=== PATIENT | female | born 1940 | race Caucasian/White ===

== ENCOUNTER 2017-07-12 19:38 | Emergency (ER) | payer OTHER ==
[~2017-07-12] VITALS: Ht 170.2 cm; Wt 99.8 kg
[~2017-07-12 19:38] MED LIST: AMITRIPTYLINE H50 M2 PO; AMITRIPTYLINE H75 M1 PO; AMITRIPTYLINE PO; CIPROFLOXACIN500 M1 PO; CLARITIN10 MG PO; COLACE100 MG; HYDROCHLOROTHIA25 M1 PO; HYDROCODON-ACE1 EAC8 PO; HYDROCODONE-AP1 EAC6 PO; HYOSCYAMIN125 MCG/5; IBUPROFEN 800800 M1 PO; LETROZOLE2.5 MG PO; LEVSIN-SL0.125 MG SL; MECLIZINE 25 MG25 M1 PO; OMEPRAZOLE 20 M20 M1; PERCOCET 5-3251 EACH PO; POTASSIUM PO; PRILOSEC20 MG PO; PRILOSEC40 MG PO; PYRIDIUM200 M1; STOOL SOFTENER1 EAC2 PO; TAMSULOSIN HCL0.4 MG PO; XANAX 0.5 MG0.5 MG PO
[2017-07-12] MEDS ORDERED: OXYBUTYNIN 5 MG5 M2 PO (19:53)
[2017-07-12] MEDS ORDERED: TRAZODONE HCL50 MG PO (19:53)
[2017-07-12 20:08] LABS: ABSOLUTE EOSINOPHILS 0.2 thou/uL (0.0-0.7); ABSOLUTE LYMPHOCYTES 1.1 thou/uL (0.8-5.3); ABSOLUTE MONOCYTES 0.9 thou/uL (0.0-1.2); ABSOLUTE NEUTROPHILS 5.9 thou/uL (1.6-8.1); BASOPHILS 0.6 %; EOSINOPHILS 2.5 %; HEMATOCRIT 39.6 % (37.0-47.0); HEMOGLOBIN 13.3 gm/dL (12.0-15.0); MCH 32.4 pg (26.0-34.0); MCHC 33.6 g/dL (28.0-37.0); MCV 96.5 fL (80.0-100.0); MONOCYTES 10.6 %; NUCLEATED RBCS 0 /100WBC; PLATELET COUNT* 319 thou/uL (150-400); POLYS 73.3 %; RBC 4.11 mil/uL (4.20-5.00); WBC 8.1 thou/uL (4.0-11.0)
[2017-07-12 20:19] LABS: URINE BILIRUBIN NEGATIVE (Negative); URINE BLOOD 1+ (Negative); URINE CLARITY SL CLOUDY; URINE GLUCOSE-RANDOM NEGATIVE (Negative); URINE KETONES NEGATIVE (Negative); URINE PROTEIN NEGATIVE (Negative); URINE SPECIFIC GRAVITY 1.015 (1.005-1.030); URINE UROBILINOGEN 0.2 E.U./dl (0.2-1.0)
[2017-07-12 20:20] LABS: URINE COLOR PALE YELLOW; URINE LEUKOCYTES-REFLEX 2+ (Negative); URINE NITRITE-REFLEX POSITIVE (Negative)
[2017-07-12 20:20] LABS: ANION GAP 8 mmol/L (7-16); BUN 13 mg/dL (7-18); CALCIUM 9.3 mg/dL (8.5-10.1); CHLORIDE 104 mmol/L (98-107); CO2 26 mmol/L (21-32); GLUCOSE 122 mg/dL (70-99); POTASSIUM 3.7 mmol/L (3.5-5.1); SODIUM 138 mmol/L (136-145)
[2017-07-12 20:29] LABS: BACTERIA-REFLEX >30 Many /HPF (None Seen); CASTS None Seen /LPF (None Seen); CRYSTALS None Seen /LPF (None Seen); SQUAMOUS 4-10 Moderate /LPF (0-3); URINE WBC-REFLEX >25 Many /HPF (0-5)
[2017-07-12 20:30] LABS: URINE RBC 0-2 Rare /HPF (0-2); WBC CLUMPS Moderate (None Seen)
[2017-07-12 20:32] LABS: ALBUMIN 3.6 g/dL (3.4-5.0); ALKALINE PHOSPHATASE 90 U/L (46-116); NT-PRO BRAIN NAT PEPTIDE 342 pg/mL (<300); SGOT 21 U/L (15-37); SGPT 27 U/L (30-65); TOTAL BILIRUBIN 0.3 mg/dL (<0.1-1.0); TOTAL PROTEIN 7.5 g/dL (6.4-8.2); TROPONIN-I LEVEL <0.06 ng/mL (<0.06)
[2017-07-12] MEDS ORDERED: HYDROCHLOROTH12.5 M1 PO (21:13)
[2017-07-12] MEDS ORDERED: KEFLEX500 M1 PO (21:13)
[2017-07-12] MEDS ORDERED: ANTIVERT25 MG PO (21:13)
[2017-07-12 21:49] VITALS: BP 166/76
--- NOTE | 2017-07-13 14:37 | EKG ---
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 : 1940 Requested By: Corwin Browne Order Number: [id number] MD: Keny Krause Measurements Intervals [place] Rate: 70 P: 39 [place]: 169 QRS: 54 QRSD: 108 T: 33 QT: 396 QTc: 428 Interpretive Statements Sinus rhythm Probable left atrial enlargement Baseline wander in lead(s) II,III,aVF Compared to ECG 02/23/2015 22:03:22 No significant changes Electronically Signed On 07-13-2017 14:36:45 CDT by Keny Krause [email or web address] <ELECTRONICALLY SIGNED> By: Shankar Krause MD, [facility] 07/13/17 1826 52 52 Shankar Krause MD, [facility] /EPI
== END 2017-07-12 21:54 | disposition home or self-care (01) ==
LOC: M.ERS 19:38
PROVIDERS: Emergency Medicine Emergency Medical Services
DX: N39.0 Urinary tract infection, site not specified (principal); I10 Essential (primary) hypertension; R42 Dizziness and giddiness; Z88.1 Allergy status to other antibiotic agents

== ENCOUNTER → 2018-02-14 | Outpatient (CLI) | payer OTHER ==
[~2018-02-14] MED LIST changes: +ANTIVERT25 MG PO; +HYDROCHLOROTH12.5 M1 PO; +KEFLEX500 M1 PO; +OXYBUTYNIN 5 MG5 M2 PO; +TRAZODONE HCL50 MG PO
== END ==
LOC: M.RAD 09:19
DX: R92.8 Other abnormal and inconclusive findings on diagnostic imaging of breast (principal)

== ENCOUNTER 2018-08-03 23:10 | Inpatient (IN) | payer OTHER ==
[~2018-08-03] VITALS: Ht 167.6 cm; Wt 93.4 kg
--- NOTE | ~2018-08-03 | OP ---
[address] [address] OPERATIVE REPORT Name: LIAM ENGLISH Room: [address] IN M.R.#: [id number] Admission: 08/04/18 Attend Phys: Etienne Martínez Discharge: Date of : 38 Report #: [id number] THIS REPORT FOR: //name// CC: Hailey Ly DATE OF SERVICE: 08/06/2018 PREOPERATIVE DIAGNOSES: 1. Right ureteral stone. 2. Right renal stone. 3. Urinary tract infection. POSTOPERATIVE DIAGNOSES: 1. Right ureteral stone. 2. Right renal stone. 3. Urinary tract infection. PROCEDURE PERFORMED: Cystoscopy with right retrograde pyelogram, ureteroscopy, laser lithotripsy and stent placement. SURGEON: Harpreet Crook MD ANESTHESIA: General. ESTIMATED BLOOD LOSS: Minimal. COMPLICATIONS: None. INDICATION FOR PROCEDURE: A 77-year-old female who presented with UTI and possible sepsis earlier in the week. She has been on IV antibiotics and a CT scan was obtained revealing a right distal ureteral stone with moderate hydronephrosis and a right renal stone. Her options for management were discussed in detail. She has elected to proceed with cystoscopy, right retrograde pyelogram, ureteroscopy, laser lithotripsy and stent placement. The risks, benefits, possible complications were explained in detail to both she and her and they had a chance to ask questions, which were answered to their satisfaction and they elected to proceed. DESCRIPTION OF PROCEDURE: After obtaining informed consent, the patient was taken to the Operating Room and placed in supine position. After adequate general anesthesia and IV antibiotics, she was prepped and draped in the dorsal lithotomy position. A 21-Tajik cystoscope with 30-degree lens was introduced in the bladder. The bladder was systematically inspected. There was moderate erythema throughout several cystic lesions along the posterior bladder wall consistent with recent urinary tract infection. [place] [address] OPERATIVE REPORT Name: LIAM ENGLISH Room: [address] IN [facility].#: [id number] Admission: 08/04/18 Attend Phys: Etienne Martínez Discharge: Date of : 38 Report #: [id number] was then performed using a 5-Tajik open-ended ureteral catheter. There was normal caliber ureter up to approximately 4 cm proximal to the ureterovesical junction where a small filling defect was noted measuring about 4-5 mm. A small amount of contrast passed proximal revealing a bibdkyar-nj-bmeozf hydroureter and hydronephrosis. A sensor guidewire was then passed through the distal ureter up to the stone. It did not pass very easily, so the Pollack catheter was advanced over the wire up to the stone. The wire was then advanced around the stone into the renal pelvis under fluoroscopic guidance. The Pollack catheter was attempted to be advanced over the wire, pass the stone, but it would not advance easily, so a second Glidewire with an angle tip was attempted to be passed around the stone. There was concern that the wire may have gone submucosal for a small portion, so the second wire was attempted to be placed. It would not pass around the stone, so it was determined that rigid ureteroscopy would be carried out. The rigid ureteroscope was passed alongside the wire into the distal ureter where the stone was encountered and indeed there appeared to be that the first wire passed submucosal for 1-2 mm and then reentered the lumen proximally. The stone appeared to be embedded within the wall, so it was determined that it would need to be extracted in order to place a stent adequately. Using a 200 micron holmium laser fiber, the stone was fragmented in multiple tiny fragments. The stone fragments were basket retrieved atraumatically. The wire was repositioned directly within the lumen of the ureter. The ureteroscope was used to inspect the remainder of the ureter from the proximal ureter down to the ureterovesical junction. There was no evidence of any ureteral injury and no evidence of any residual stone fragments. There was moderate amount of edema where the stone had been lodged. A 6 x 28 cm double-J stent was passed in retrograde fashion over the wire. A good coil was noted overlying the renal pelvis under fluoroscopy and a good coil was directly visualized in the bladder. The bladder was drained. Uro-Jet was applied per urethra. The stone fragments were sent to lab for stone analysis. B and O suppository was placed per rectum and the patient was extubated and taken to recovery room in good condition. PLAN: Return her care to floor, dismiss when stable and afebrile. We will plan to follow up in 1-2 weeks with repeat ureteroscopy, laser lithotripsy for renal stone and to evaluate her ureter to make sure it is healed. By: 1616 [id number] Crook MD /michelle
[2018-08-03 23:25] VITALS: BP 181/80
[2018-08-03 23:29] LABS: URINE BILIRUBIN NEGATIVE (Negative); URINE BLOOD 2+ (Negative); URINE CLARITY CLEAR; URINE COLOR YELLOW; URINE GLUCOSE-RANDOM NEGATIVE (Negative); URINE KETONES NEGATIVE (Negative); URINE NITRITE-REFLEX NEGATIVE (Negative); URINE PROTEIN NEGATIVE (Negative); URINE SPECIFIC GRAVITY 1.015 (1.005-1.030); URINE UROBILINOGEN 0.2 E.U./dl (0.2-1.0)
[2018-08-03] MEDS ORDERED: LEXAPRO 10 MG T10 M1 (23:30)
[2018-08-03] MEDS ORDERED: FEMARA2.5 MG PO (23:31)
[2018-08-03 23:35] LABS: URINE LEUKOCYTES-REFLEX 3+ (Negative)
[2018-08-03 23:48] LABS: BACTERIA-REFLEX >30 Many /HPF (None Seen); CASTS None Seen /LPF (None Seen); CRYSTALS None Seen /LPF (None Seen); MUCUS 0-3 Light strn/LPF (None Seen); SQUAMOUS 0-3 Few /LPF (0-3); URINE WBC-REFLEX >25 Many /HPF (0-5); WBC CLUMPS Few (None Seen)
[2018-08-04 00:20] LABS: HEMATOCRIT 40.4 % (37.0-47.0); HEMOGLOBIN 13.7 gm/dL (12.0-15.0); MCH 32.2 pg (26.0-34.0); MCHC 33.8 g/dL (28.0-37.0); MCV 95.4 fL (80.0-100.0); MPV 8.2 fl. (7.2-11.1); NUCLEATED RBCS 0 /100WBC; PLATELET COUNT* 288 thou/uL (150-400); RBC 4.23 mil/uL (4.20-5.00); RDW-CV 13.1 % (10.5-14.5); WBC 10.7 thou/uL (4.0-11.0)
[2018-08-04 00:45] LABS: CALCIUM 9.6 mg/dL (8.5-10.1); CREATININE 1.1 mg/dL (0.6-1.3); POTASSIUM 3.6 mmol/L (3.5-5.1)
[2018-08-04 01:06] LABS: INFLUENZA A ANTIGEN None Detected (None Detect); INFLUENZA B ANTIGEN None Detected (None Detect)
[2018-08-04 01:12] LABS: ABSOLUTE LYMPHOCYTES 0.7 thou/uL (0.8-5.3); ABSOLUTE MONOCYTES 1.1 thou/uL (0.0-1.2); ABSOLUTE NEUTROPHILS 8.9 thou/uL (1.6-8.1); PLATELET ESTIMATE ADEQUATE; TOXIC GRANULATION 1+
[2018-08-04 02:05] VITALS: BP 173/84
[2018-08-04 03:00] VITALS: BP 173/72
[2018-08-04 04:00] VITALS: BP 135/56
[2018-08-04 04:11] LABS: HEMOGLOBIN 12.5 gm/dL (12.0-15.0); MCH 32.1 pg (26.0-34.0); MCHC 33.7 g/dL (28.0-37.0); MCV 95.3 fL (80.0-100.0); MPV 7.8 fl. (7.2-11.1); RBC 3.89 mil/uL (4.20-5.00); RDW-CV 12.9 % (10.5-14.5); WBC 11.9 thou/uL (4.0-11.0)
[2018-08-04 04:44] LABS: ALBUMIN 2.8 g/dL (3.4-5.0); CALCIUM 8.9 mg/dL (8.5-10.1); POTASSIUM 3.5 mmol/L (3.5-5.1); TOTAL BILIRUBIN 0.6 mg/dL (<0.1-1.0); TOTAL PROTEIN 6.4 g/dL (6.4-8.2)
--- NOTE | 2018-08-04 05:17 | NUR ---
RECEIVED REPORT FROM ED RN. PT A&OX4. VSS. ADMISSION HISTORY & PHYSICAL ASSESSMENT COMPLETED AND CHARTED. FALL FORM SIGNED. ORIENTED TO ROOM AND CALL LIGHT. PT ON RA. PT ON MEDSURG STATUS. PT UPSTANDBY TO RESTROOM. PT COMPLAINED OF HEADACHE- PAIN MEDS GIVEN PER MAR. CALL LIGHT WITHIN REACH.
[2018-08-04 08:09] VITALS: BP 184/76
--- NOTE | 2018-08-04 09:44 | NUR ---
ASSUMED CARE OF PT THIS AM AROUND 07- MS STATUS IN PLACE AND MAINTAINED INDICATED- UPON ASSESSMENT PT NOTED TO BE RESTING IN BED- PT A&O X4- CONTINENT OF BOWEL AND BLADDER- SBA WITH TRANSFERS- LCTA/DIMINISHED IN BASES; RESP EVEN AND UN-LABORED- TEMP NOTED AT 101.7 THIS AM, PRN TYLENOL GIVEN AT 0837; O2 SAT 95% ON RA- ABD SOFT/ROUND/NON-TENDER, BS X4 QUADS- LAST BM REPORTED 08/03/18- FAIR PO INTAKE NOTED WITH BREAKFAST THIS AM- IV NOTED TO LEFT AC INTACT, IVF INFUSSING PRESCRIBED- IV ABT GIVEN THIS AM PRESCIBED, NO ADVERSE REACTIONS TO NOTE-PT DENIES ANY C/O PAIN- CALL LIGHT AND PERSONAL BELONGINGS WITH IN REACH- PT MAKES NEEDS KNOW- ALL NEEDS MET AT THIS TIME- WCTM
--- NOTE | 2018-08-04 10:34 | NUR ---
Pt is A&O. Resides at home with her . Independent, continues to cook and clean. Pt can drive, but states that does the majority of the driving. Pt has a walker and cane at home that she can use for mobility. No home o2. No hx of HH or SNF. Goal is home at id. Following.
--- NOTE | 2018-08-04 11:39 | NUR ---
PT ARRIVED FROM TELE AROUND 1100. PT STABLE. PERSONAL BELONGINGS IN ROOM. IV PATENT. IN ROOM. UP WITH STAND BY. AGREE WITH PREVIOUS ASSESSMENT.
--- NOTE | 2018-08-04 13:29 | NUR ---
PT ORDERS RECEIVED AND ACKNOWLEDGED. PT INDICATES THEY ARE UP AD JONATHAN IN ROOM TO BATHROOM W/O DIFFICULTY. NSG CONFIRMS. PT DECLINES THERAPY SERVICES AT THIS TIME AND INDICATES NO CONCERNS W/ DISCHARGE BACK TO HOME. WILL DISCHARGE PT ORDERS PER PT REQUEST.
[2018-08-04 15:30] VITALS: BP 155/74
--- NOTE | 2018-08-04 17:03 | NUR ---
PT A&Ox4. BP AND TEMP SLIGHTLY ELEVATED, RELIEVED PARTIALLY BY MEDICATION. IV PATENT, SL. BATHROOM PRIVLEDGES GIVEN. BLOOD CULTURE CAME BACK POSSITIVE WITH GRAM NEGATIVE RODS, FRANCESCA NOTIFIED. CALL LIGHT WITHIN REACH WILL CONTINUE TO MONITOR.
[2018-08-04 20:00] VITALS: BP 118/58
[2018-08-05 04:07] LABS: HEMATOCRIT 36.6 % (37.0-47.0); HEMOGLOBIN 12.3 gm/dL (12.0-15.0); MCH 32.2 pg (26.0-34.0); MCHC 33.7 g/dL (28.0-37.0); MCV 95.8 fL (80.0-100.0); MPV 8.3 fl. (7.2-11.1); RBC 3.82 mil/uL (4.20-5.00); RDW-CV 13.1 % (10.5-14.5); WBC 10.3 thou/uL (4.0-11.0)
[2018-08-05 04:12] LABS: CALCIUM 9.3 mg/dL (8.5-10.1); CREATININE 1.2 mg/dL (0.6-1.3); MAGNESIUM 1.8 mg/dL (1.8-2.4); POTASSIUM 4.7 mmol/L (3.5-5.1)
[2018-08-05 08:00] VITALS: BP 142/68
--- NOTE | 2018-08-05 08:13 | NUR ---
Alert and oriented x 4. She is up independently to the bathroom. She had tylenol for back pain at 2100. At midnight she did have mylanta and tramadol for heartburn. Vitals have been stable. She had no emesis this shift. She's been afebrile. She did sleep well.
[2018-08-05 15:44] VITALS: BP 142/57
--- NOTE | 2018-08-05 17:48 | NUR ---
PT A&Ox4. VITALS STABLE. UP AD JONATHAN. ON RA. IV L AC PATENT. 4MM STONE FOUND, STRAINING URINE. SURGERY SCHEDULED FOR TOMORROW. DENIED PAIN. DENIED NAUSEA. IN ROOM. CALL LIGHT WITHIN REACH. WILL CONTINUE TO MONITOR.
[2018-08-05 20:00] VITALS: BP 148/72
[2018-08-06 04:10] LABS: HEMATOCRIT 36.4 % (37.0-47.0); HEMOGLOBIN 12.1 gm/dL (12.0-15.0); MCHC 33.3 g/dL (28.0-37.0); RBC 3.79 mil/uL (4.20-5.00); WBC 7.6 thou/uL (4.0-11.0)
[2018-08-06 04:39] LABS: CALCIUM 9.4 mg/dL (8.5-10.1); CREATININE 1.1 mg/dL (0.6-1.3); POTASSIUM 3.9 mmol/L (3.5-5.1)
--- NOTE | 2018-08-06 05:19 | NUR ---
ASSUMEDPATIENT CARE AT 1900. PATIENT ALERT AND ORIENTED TIMES FOUR. NO COMPLAINTS OF PAIN OR DISCOMFORT NOTED. PATIENT NERVOUS ABOUT SURGICAL PROCEDURE. WENT OVER WHAT THAT WITH HER AND SHE SEEMED TO RELAX A LITTLE. DISSAPPOINTED THAT "THINGS KEEP COMING UP" THAT ARE WRONG WITH HER AND THAT SHE HAS TO KEEP STAYING. HOPEFUL TO GO OME AFTER PROCEDURE TODAY. DIE CAST SUPERVISOR AND HOURLY ROUNDING COMPLETED DOCUMENTED.
[2018-08-06 08:00] VITALS: BP 180/85
--- NOTE | 2018-08-06 11:52 | CON ---
[address] [address] CONSULTATION Name: LIAM ENGLISH Room: [address] IN M.R.#: [id number] Admission: 08/04/18 Attend Phys: Etienne Martínez Discharge: Date of : 38 Report #: [id number] THIS REPORT FOR: //name// CC: Hailey Ly DATE OF SERVICE: 08/05/2018 INFECTIOUS DISEASE CONSULTATION ATTENDING PHYSICIAN: Dr. Can Ly. REASON FOR EVALUATION: Complicated urinary tract infection, complicated by gram-negative septicemia. HISTORY OF PRESENT ILLNESS: Chart reviewed, patient examined. This is a 77-year-old woman with history of urinary tract infections. Apparently, he had been feeling poorly for the last several days, described generalized weakness, had had intermittent fevers at times with shaking chills. She was taking wque-fkf-pfaoyra medicines seemed to bring that down only to have relapse. She has ongoing issues with headaches, describes migraines. Denied any particular chest-related complaints, although did notice decreased exercise tolerance, specifically denies any abdominal or flank related pain and had a diminished appetite. Evaluation of urinalysis showed marked pyuria, normal lactic acid. Influenza A and B antigen was negative. White count was normal range as well. Chest x-ray was unremarkable. At the time of admission, two blood cultures were collected, now 1 of 2 with growth of gram-negative dave, pending ID and susceptibility. She feels markedly better. She is empirically started on antimicrobials specifically ceftriaxone. ALLERGIES: SULFA. CURRENT MEDICINES: Include enoxaparin, trazodone, hydralazine, lisinopril, pantoprazole, ceftriaxone, letrozole, hydrochlorothiazide, p.r.n. analgesics and antiemetics. PAST MEDICAL HISTORY: In addition noted above, history of upper GI tract ulcer with gastrointestinal hemorrhage, migraines, vertigo, reflux, history of breast cancer, previous tonsillectomy, appendectomy, hysterectomy, partial gastrectomy, hernia repair, bilateral cataracts. SOCIAL HISTORY: Nonsmoker, no ethanol. FAMILY HISTORY: Noncontributory. REVIEW OF SYSTEMS: Otherwise, 10-point review of systems [place] [id number] CONSULTATION Name: LIAM ENGLISH Room: [address] IN [facility]#: [id number] Admission: 08/04/18 Attend Phys: Etienne Martínez Discharge: Date of : 38 Report #: [id number] exception of the above in the history of present illness. PHYSICAL EXAMINATION: GENERAL: She is alert, cooperative. She appears ill, but not overtly toxic. She is in moderate distress. At this point, she is not encephalopathic. VITAL SIGNS: Temperature max 102.1, more recently 98.8; pulse 66, respirations 14, blood pressure 142/60. SKIN: Warm, dry, no rashes. Somewhat pale. HEENT: Normocephalic. Extraocular muscles intact. NECK: Supple. LUNGS: Diminished breath sounds, otherwise clear. HEART: Regular. Borderline bradycardic, I do not appreciate a murmur. ABDOMEN: Soft, nontender, nondistended. There is really no flank pain either. GENITOURINARY: Deferred. RECTAL: Deferred. LABORATORY DATA: Urinalysis as described above. Greater than 25 white cells, greater than 30, bacteria. Lactic acid 1.1. Initial electrolytes, sodium 140, potassium 3.6, chloride 103, bicarbonate is 24, anion gap of 13. BUN and creatinine 11 and 1.1, estimated GFR 48. Influenza antigen were negative. CBC: White count 10.7, H and H are 13.7 and 40.3, platelets of 288. Did have absolute lymphocytopenia of 700 and 1+ toxic granulations. Liver functions otherwise unremarkable. Albumin of 2.8. Total protein 6.4. Chest x-ray, no definite acute process. Blood cultures with 1 out of 2 growth, gram-negative rods. ASSESSMENT AND PLAN: Gram-negative septicemia, likely genitourinary tract source. We will continue empiric therapy. Await culture results. I think in the interim, we will give a single dose of gentamicin as a bridge as resistant organism. At this point, without any evidence of obstructive uropathy, we will see how she does clinically in the next 24-48 hours. Monitor expectantly. We will add incentive spirometry as well. She was encouraged to be as active as possible. <ELECTRONICALLY SIGNED> By: Royce Dhillon MD 08/06/18 1152 1001 Royce Dhillon MD /nt
[2018-08-06 13:42] VITALS: BP 180/85
[2018-08-06 18:00] VITALS: BP 183/75
--- NOTE | 2018-08-06 18:45 | NUR ---
PT ARRIVED BACK TO FLOOR FROM PACU ABOUT 1740. A&Ox4. IV PATENT. HAS NOT GOT UP SINCE PROCEDURE. VITALS STABLE. BP HIGHER, IV HYDRALAZINE GIVEN IN PACU, MONITORING. DROWSY AND TEARFUL SINCE ARRIVING BACK TO FLOOR. BEAR HUGGER FOR WARMTH. ONLY PAIN IS A HEAD ACHE, TRAMADOL GIVEN. CALL LIGHT WITHIN REACH. IN ROOM. WILL CONTINUE TO MONITOR.
[2018-08-06 20:00] VITALS: BP 127/55
[2018-08-07 04:00] VITALS: BP 140/71
--- NOTE | 2018-08-07 06:32 | NUR ---
THIS NURSE ASSUMES CARE OF PT 08/06/18 AT 1920, PT IS ALERT AND ORIENTED X 4 , AT BEDSIDE, PT IS COMPLAINING OF BEING HOT, FAN PROVIDED, PT ASSISTED TO BATHROOM WITH MODERATE ASSIST, PT COMPLAINS OF BEING DIZZY AND HOT WHEN AMBULATING FROM BATHROOM BACK TO BED,
--- NOTE | 2018-08-07 07:20 | NUR ---
THIS NURSE ASSUMED CARE OF PT 08/06/18 AT 1930, PT ALERT AND OREINTED X4, PT COMPLAINS OF RIGHT ARM SORNESS SHE REPORTS FROM BLOOD PRESSURE CUFF EARILER IN THE DAY, PAIN RESOLVED WITH TYLENOL, PT RESTS WELL THROUGHOUT THE NIGHT WITH NO OTHER COMPLAINTS, UP TO BATHROOM INDEPENDENTLY WITH STAND BY ASSIST, NEW IV PLACED TO RT LOWER FORARM, NO OTHER COMPLAINTS/CONCERNS EXPRESSED
[2018-08-07 08:00] VITALS: BP 141/54
[2018-08-07 17:44] VITALS: BP 132/56
--- NOTE | 2018-08-07 18:05 | NUR ---
PT A&Ox4. VITALS STABLE. NO STONES FOUND IN URINE. UP AD JONATHAN. IV ABX STOPPED AND ORAL STARTED IN PREPERATION FOR DC. DENIED PAIN. DENIED NAUSEA. IN ROOM MOST OF THE DAY. CALL LIGHT WITHIN REACH. WILL CONTINUE TO MONITOR.
[2018-08-07 20:30] VITALS: BP 166/64
--- NOTE | 2018-08-08 07:46 | NUR ---
Alert and oriented x 4. She is up independently in the room. She did have pain med x 1 for back pain and she was sleeping. During the night her IV machine was alarming because the battery was low. The SOUP PERSON said she was upset about it b/c it was alarming. This am she is upset with us b/c we didn't come in the room, we just peeked in. But she has appeared to be sleeping.
[2018-08-08 08:00] VITALS: BP 96/50
[2018-08-08] MEDS ORDERED: FLOMAX0.4 MG PO (08:57)
[2018-08-08] MEDS ORDERED: LISINOPRIL10 MG PO (08:57)
[2018-08-08] MEDS ORDERED: LEVAQUIN 500 M500 M1 PO (08:57)
[2018-08-08 10:19] VITALS: BP 96/50
--- NOTE | 2018-08-08 10:48 | NUR ---
PATIENT'S PRESCRIPTIONS OF LEVAQUIN, FLOMAX, AND LISINOPRIL CALLED INTO PATIENT'S PHARMACY.
[2018-08-08 10:51] VITALS: BP 96/50
--- NOTE | 2018-08-08 10:51 | NUR ---
PT GIVEN DISCHARGE INFORMATION AND PRESCRIPTIONS CALLED INTO PHARMACY. PT COMPLAINED ABOUT PAPER WORK NOT BEING COMPELTED. ISABELA AND ENGINEERING PRODUCTION WORKER CALLED AND TALKED TO PATIENT AND FAMILY. PT IV REMOVED. PT LEFT VIA WHEELCHAIR WITH NURSING STAFF TO HOME. HOURLY ROUNDING COMPLETED. FALL RISK PRECAUTIONS IN PLACE.
[2018-08-08 15:10] LABS: STONE CA OXALATE MONOHYDRATE 95 % (()); STONE COLOR Brown (()); STONE COMMENT Note: (())
--- NOTE | 2018-08-08 16:33 | EKG ---
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[facility] 1940 Requested By: Can Ly Order Number: [id number] MD: Ben Palacios Measurements Intervals [place] Rate: 61 P: 23 SC: 141 QRS: 61 QRSD: 100 T: 34 QT: 405 QTc: 408 Interpretive Statements Sinus rhythm Atrial premature complexes Probable left atrial enlargement Left ventricular hypertrophy Compared to ECG 07/12/2017 19:53:01 Atrial premature complex(es) now present Left ventricular hypertrophy now present Electronically Signed On 08-08-2018 16:32:57 CDT by Ben Palacios [email or web address] <ELECTRONICALLY SIGNED> By: Ben Palacios MD, [facility] 08/08/18 1632 1013 1013 Ben Palacios MD, [facility] /EPI
--- NOTE | 2018-08-08 16:33 | EKG ---
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[facility] 1940 Requested By: Can Ly Order Number: [id number] MD: Ben Palacios Measurements Intervals [place] Rate: 61 P: 42 ID: 140 QRS: 60 QRSD: 99 T: 50 QT: 408 QTc: 411 Interpretive Statements Sinus rhythm Atrial premature complex Probable left atrial enlargement Left ventricular hypertrophy Compared to ECG 07/12/2017 19:53:01 Atrial premature complex(es) now present Left ventricular hypertrophy now present Electronically Signed On 08-08-2018 16:33:00 CDT by Ben Palacios [email or web address] <ELECTRONICALLY SIGNED> By: Ben Palacios MD, [facility] 08/08/18 1633 1014 1014 Ben Palacios MD, [facility] /EPI
== END 2018-08-08 10:54 | disposition home or self-care (01) | DRG 854 ==
LOC: M.ERS 23:10 → M.ORTHSURG 08-04 01:05 → M.2W 08-04 01:05 → M.TBA-ER 08-04 01:05 → M.2W 08-04 02:23 → M.ORTHSURG 08-04 11:01
PROVIDERS: Emergency Medicine; Internal Medicine; Nurse Practitioner Family; Urology; ADMIT Internal Medicine
PROC: 0TC68ZZ Extirpation of Matter from Right Ureter, Via Natural or Artificial Opening Endoscopic (ICD-10-PCS; principal; 2018-08-06)
PROC: 0T768DZ Dilation of Right Ureter with Intraluminal Device, Via Natural or Artificial Opening Endoscopic (ICD-10-PCS; principal; 2018-08-06)
PROC: BT1D1ZZ Fluoroscopy of Right Kidney, Ureter and Bladder using Low Osmolar Contrast (ICD-10-PCS; principal; 2018-08-06)
DX: A41.50 Gram-negative sepsis, unspecified (principal); E44.0 Moderate protein-calorie malnutrition; N13.6 Pyonephrosis; I16.0 Hypertensive urgency; N13.9 Obstructive and reflux uropathy, unspecified; Z96.653 Presence of artificial knee joint, bilateral; K21.9 Gastro-esophageal reflux disease without esophagitis; G43.909 Migraine, unspecified, not intractable, without status migrainosus; Z88.2 Allergy status to sulfonamides; Z85.3 Personal history of malignant neoplasm of breast; Z90.49 Acquired absence of other specified parts of digestive tract; Z90.710 Acquired absence of both cervix and uterus; Z90.3 Acquired absence of stomach [part of]; Z98.42 Cataract extraction status, left eye; Z98.41 Cataract extraction status, right eye; Z79.899 Other long term (current) drug therapy; Z68.33 Body mass index [BMI] 33.0-33.9, adult

== ENCOUNTER → 2019-02-24 | Outpatient (CLI) | payer OTHER ==
[~2019-02-24] MED LIST changes: +FEMARA2.5 MG PO; +FLOMAX0.4 MG PO; +LEVAQUIN 500 M500 M1 PO; +LEXAPRO 10 MG T10 M1; +LISINOPRIL10 MG PO
== END ==
LOC: M.RAD 02-20 09:30
DX: C50.911 Malignant neoplasm of unspecified site of right female breast (principal)

== ENCOUNTER 2019-04-02 16:00 | Emergency (ER) | payer OTHER ==
[~2019-04-02] VITALS: Ht 167.6 cm; Wt 86.2 kg
[2019-04-02 16:40] LABS: ABSOLUTE EOSINOPHILS 0.1 thou/uL (0.0-0.7); ABSOLUTE LYMPHOCYTES 0.6 thou/uL (0.8-5.3); ABSOLUTE MONOCYTES 0.5 thou/uL (0.0-1.2); ABSOLUTE NEUTROPHILS 4.3 thou/uL (1.6-8.1); BASOPHILS 0.6 %; EOSINOPHILS 2.2 %; HEMATOCRIT 40.4 % (37.0-47.0); HEMOGLOBIN 13.5 gm/dL (12.0-15.0); LYMPHOCYTES 11.2 %; MCH 32.9 pg (26.0-34.0); MCHC 33.5 g/dL (28.0-37.0); MCV 98.2 fL (80.0-100.0); MONOCYTES 9.1 %; MPV 8.2 fl. (7.2-11.1); NUCLEATED RBCS 0 /100WBC; PLATELET COUNT* 240 thou/uL (150-400); POLYS 76.9 %; RBC 4.11 mil/uL (4.20-5.00); RDW-CV 14.8 % (10.5-14.5); WBC 5.5 thou/uL (4.0-11.0)
[2019-04-02 16:50] LABS: INR 1.1; PROTIME 10.9 Seconds (9.20-11.50)
[2019-04-02 17:05] LABS: CALCIUM 9.6 mg/dL (8.5-10.1); CREATININE 1.2 mg/dL (0.6-1.3); POTASSIUM 3.8 mmol/L (3.5-5.1)
[2019-04-02 17:15] LABS: ALBUMIN 3.4 g/dL (3.4-5.0); TOTAL BILIRUBIN 0.3 mg/dL (<0.1-1.0)
[2019-04-02] MEDS ORDERED: PREDNISONE 20 M20 M1 PO (18:19)
[2019-04-02] MEDS ORDERED: NEBULIZER MISCELL (18:19)
[2019-04-02] MEDS ORDERED: IPRAT-ALBUT 0.5-3 ML INH (18:19)
[2019-04-02 18:33] VITALS: BP 147/53
--- NOTE | 2019-04-03 12:31 | EKG ---
[place] [address] ELECTROCARDIOGRAM REPORT Name: LIAM ENGLISH Room: [facility]#: [id number] Admission: 04/02/19 Attend Phys: Discharge: 04/02/19 Date of : 38 Report #: [id number] THIS REPORT FOR: //name// [facility] ED Test Date: 2019-04-02 Test Time: 16:05:53 Pat Name: LIAM ENGLISH Department: Room: Gender: F Retail Marketing Specialist: YAYA : 1940 Requested By: aMgo Aggarwal Order Number: [id number] MD: Lamin Collins Measurements Intervals [place] Rate: 67 P: 46 CO: 149 QRS: 53 QRSD: 103 T: 45 QT: 375 QTc: 396 Interpretive Statements Sinus rhythm Atrial premature complexes Probable left atrial enlargement Left ventricular hypertrophy Nonspecific T abnormalities, lateral leads Compared to ECG 08/06/2018 10:14:07 T-wave abnormality now present Electronically Signed On 04-03-2019 12:31:21 RN HYPERBARIC by Lamin Collins [email or web address] <ELECTRONICALLY SIGNED> By: Lamin Collins MD, [facility] 04/03/19 1231 1605 1605 Lamin Collins MD, [facility] /EPI
== END 2019-04-02 18:43 | disposition home or self-care (01) ==
LOC: M.ERS 16:00
PROVIDERS: Personal Emergency Response Attendant
DX: R05 Cough (principal); R74.8 Abnormal levels of other serum enzymes; K21.9 Gastro-esophageal reflux disease without esophagitis; G43.909 Migraine, unspecified, not intractable, without status migrainosus; Z90.49 Acquired absence of other specified parts of digestive tract; Z90.710 Acquired absence of both cervix and uterus; Z88.2 Allergy status to sulfonamides; Z85.3 Personal history of malignant neoplasm of breast

== ENCOUNTER 2019-10-29 15:27 | Emergency (ER) | payer OTHER ==
[~2019-10-29] VITALS: Ht 167.6 cm; Wt 86.2 kg
[~2019-10-29 15:27] MED LIST changes: +IPRAT-ALBUT 0.5-3 ML INH; +NEBULIZER MISCELL; +PREDNISONE 20 M20 M1 PO
[2019-10-29] MEDS ORDERED: AMITRIPTYLINE H50 M2 PO (15:37)
[2019-10-29 16:58] LABS: ABSOLUTE BASOPHILS 0.1 thou/uL (0.0-0.2); ABSOLUTE EOSINOPHILS 0.1 thou/uL (0.0-0.7); ABSOLUTE LYMPHOCYTES 1.3 thou/uL (0.8-5.3); ABSOLUTE MONOCYTES 0.9 thou/uL (0.0-1.2); ABSOLUTE NEUTROPHILS 4.1 thou/uL (1.6-8.1); BASOPHILS 0.9 %; EOSINOPHILS 1.8 %; HEMATOCRIT 36.8 % (37.0-47.0); HEMOGLOBIN 12.6 gm/dL (12.0-15.0); LYMPHOCYTES 20.1 %; MCH 32.6 pg (26.0-34.0); MCHC 34.3 g/dL (28.0-37.0); MCV 95.2 fL (80.0-100.0); MONOCYTES 14.4 %; NUCLEATED RBCS 0 /100WBC; PLATELET COUNT* 275 thou/uL (150-400); POLYS 62.8 %; RBC 3.87 mil/uL (4.20-5.00); RDW-CV 13.5 % (10.5-14.5); WBC 6.6 thou/uL (4.0-11.0)
[2019-10-29 17:06] LABS: CALCIUM 9.1 mg/dL (8.5-10.1); CREATININE 1.5 mg/dL (0.6-1.3); POTASSIUM 3.1 mmol/L (3.5-5.1); PROTIME 10.7 Seconds (9.20-11.50)
[2019-10-29 17:07] LABS: URINE BILIRUBIN NEGATIVE (Negative); URINE BLOOD TRACE (Negative); URINE CLARITY SL CLOUDY; URINE COLOR YELLOW; URINE GLUCOSE-RANDOM NEGATIVE (Negative); URINE KETONES NEGATIVE (Negative); URINE LEUKOCYTES-REFLEX 2+ (Negative); URINE NITRITE-REFLEX POSITIVE (Negative); URINE PROTEIN NEGATIVE (Negative); URINE UROBILINOGEN 0.2 E.U./dl (0.2-1.0)
[2019-10-29 17:11] LABS: ALBUMIN 3.2 g/dL (3.4-5.0); TOTAL BILIRUBIN 0.3 mg/dL (<0.1-1.0); TOTAL PROTEIN 6.5 g/dL (6.4-8.2)
[2019-10-29 17:15] LABS: MUCUS None Seen strn/LPF (None Seen); SQUAMOUS >10 Many /LPF (0-3)
[2019-10-29 17:16] LABS: BACTERIA-REFLEX >30 Many /HPF (None Seen); CRYSTALS None Seen /LPF (None Seen); HYALINE CASTS 0-3 Few /LPF (None Seen); URINE RBC 0-2 Rare /HPF (0-2); URINE WBC-REFLEX >25 Many /HPF (0-5); WBC CLUMPS Few (None Seen)
[2019-10-29] MEDS ORDERED: MACROBID 100 M100 M1 PO (17:38)
[2019-10-29 17:54] VITALS: BP 170/81
--- NOTE | 2019-10-30 09:37 | EKG ---
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: CCD : 1940 Requested By: Mago Aggarwal Order Number: [id number] MD: Lamin Collins Measurements Intervals [place] Rate: 66 P: 38 SC: 181 QRS: 39 QRSD: 125 T: 16 QT: 421 QTc: 442 Interpretive Statements Sinus rhythm Atrial premature complexes Probable left atrial enlargement Nonspecific intraventricular conduction delay Baseline wander in lead(s) V3 Compared to ECG 04/02/2019 16:05:53 no change Electronically Signed On 10-30-2019 9:37:45 CDT by Lamin Collins [email or web address] <ELECTRONICALLY SIGNED> By: Lamin Collins MD, [facility] 10/30/19 0937 1539 1539 Lamin Collins MD, [facility] /EPI
== END 2019-10-29 17:55 | disposition home or self-care (01) ==
LOC: M.ERS 15:27
PROVIDERS: Personal Emergency Response Attendant
DX: N39.0 Urinary tract infection, site not specified (principal); G43.909 Migraine, unspecified, not intractable, without status migrainosus; K21.9 Gastro-esophageal reflux disease without esophagitis; Z79.899 Other long term (current) drug therapy; Z88.2 Allergy status to sulfonamides; Z85.3 Personal history of malignant neoplasm of breast; Z90.49 Acquired absence of other specified parts of digestive tract

== ENCOUNTER → 2019-12-21 | Outpatient (CLI) | payer OTHER ==
[~2019-12-21] MED LIST changes: +MACROBID 100 M100 M1 PO
== END ==
LOC: M.RAD 09:30
PROVIDERS: ATTEND Internal Medicine Hematology & Oncology
DX: Z85.3 Personal history of malignant neoplasm of breast (principal)

== ENCOUNTER 2020-03-10 07:05 | Inpatient (IN) | payer OTHER ==
[~2020-03-10] VITALS: Ht 152.4 cm; Wt 85.3 kg
[2020-03-10 07:09] VITALS: BP 115/55
[2020-03-10] MEDS ORDERED: RAYOS5 MG PO (07:13)
[2020-03-10] MEDS ORDERED: TIZANIDINE HCL4 M1 PO (07:13)
[2020-03-10 07:35] LABS: ABSOLUTE MONOCYTES 0.7 thou/uL (0.0-1.2); ABSOLUTE NEUTROPHILS 5.9 thou/uL (1.6-8.1); BASOPHILS 0.3 %; HEMATOCRIT 37.6 % (37.0-47.0); HEMOGLOBIN 12.4 gm/dL (12.0-15.0); LYMPHOCYTES 13.1 %; MCH 31.6 pg (26.0-34.0); MCV 95.8 fL (80.0-100.0); MONOCYTES 9.4 %; MPV 7.7 fl. (7.2-11.1); NUCLEATED RBCS 0 /100WBC; PLATELET COUNT* 286 thou/uL (150-400); POLYS 77.2 %; RBC 3.93 mil/uL (4.20-5.00); RDW-CV 13.8 % (10.5-14.5); WBC 7.6 thou/uL (4.0-11.0)
[2020-03-10 07:43] LABS: CREATININE 1.5 mg/dL (0.6-1.3); POTASSIUM 3.3 mmol/L (3.5-5.1)
[2020-03-10 07:46] LABS: INR 1.1; PROTIME 11.2 Seconds (9.20-11.50)
[2020-03-10 07:47] LABS: ALBUMIN 3.4 g/dL (3.4-5.0); TOTAL BILIRUBIN 0.4 mg/dL (<0.1-1.0); TOTAL PROTEIN 6.9 g/dL (6.4-8.2)
[2020-03-10 07:56] LABS: URINE BILIRUBIN NEGATIVE (Negative); URINE BLOOD TRACE (Negative); URINE CLARITY CLEAR; URINE COLOR YELLOW; URINE GLUCOSE-RANDOM NEGATIVE (Negative); URINE KETONES NEGATIVE (Negative); URINE PROTEIN NEGATIVE (Negative); URINE UROBILINOGEN 0.2 E.U./dl (0.2-1.0)
[2020-03-10 07:58] LABS: URINE LEUKOCYTES-REFLEX 3+ (Negative); URINE NITRITE-REFLEX POSITIVE (Negative)
[2020-03-10 08:13] LABS: BACTERIA-REFLEX >30 Many /HPF (None Seen); SQUAMOUS 0-3 Few /LPF (0-3); URINE RBC 0-2 Rare /HPF (0-2); WBC CLUMPS Few (None Seen)
[2020-03-10 08:14] LABS: CASTS None Seen /LPF (None Seen); CRYSTALS None Seen /LPF (None Seen); MUCUS None Seen strn/LPF (None Seen)
--- NOTE | 2020-03-10 10:08 | EKG ---
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 Pumper: OLIVE : 1940 Requested By: Corwin Browne Order Number: [id number] MD: Lamin Collins Measurements Intervals [place] Rate: 48 P: -7 CA: 157 QRS: 56 QRSD: 108 T: 31 QT: 503 QTc: 450 Interpretive Statements Sinus bradycardia Probable left atrial enlargement Compared to ECG 10/29/2019 15:39:13 Sinus rhythm no longer present Atrial premature complex(es) no longer present Intraventricular conduction delay no longer present Electronically Signed On 03-10-2020 10:08:06 JACK TAMP OPERATOR by Lamin Collins [email or web address] <ELECTRONICALLY SIGNED> By: Lamin Collins MD, FACC 03/10/20 1008 7 7 Lamin Collins MD, FAC /EPI
--- NOTE | 2020-03-10 13:41 | 2DMMODE ---
[place] [address] 2 D/M-MODE ECHOCARDIOGRAM Name: LIAM ENGLISH Room: [place] [address] ADM IN [facility]#: [id number] Admission: 03/10/20 Attend Phys: Harpreet Arias, Discharge: Date of : 38 Date of Service: 03/10/20 1340 Report #: [id number] THIS REPORT FOR: cc: Mao Hamilton MD, Anthony MD Liston, Michael J. MD [facility] ~ APPROVED REPORT Study performed: 03/10/2020 10:38:52 EXAM: Comprehensive 2D, Doppler, and color-flow Echocardiogram Patient Location: In-Patient Room #: er Status: routine BSA: 1.96 HR: 43 bpm BP: 147/57 mmHg Rhythm: NSR Other Information Study Quality: Good Indications Abnormal ECG 2D Dimensions IVSd: 12.31 (7-11mm) LVOT Diam: 19.01 (18-24mm) LVDd: 41.12 mm PWd: 11.76 (7-11mm) Ascending Ao: 31.43 (22-36mm) LVDs: 22.74 (25-40mm) Aortic Root: 31.18 mm Volumes Left Atrial Volume (Systole) LA ESV Index: 39.70 mL/m2 Aortic Valve AoV Peak Timur.: 1.50 m/s AO Peak Gr.: 8.97 mmHg LVOT Max P.16 mmHg AO Mean Gr.: 4.74 mmHg LVOT Mean P.63 mmHg LVOT Max V: 1.34 m/s AO V2 VTI: 38.08 cm LVOT Mean V: 0.88 m/s SARAH (VTI): 2.76 cm2 LVOT V1 VTI: 37.05 [place] [address] 2 D/M-MODE ECHOCARDIOGRAM Name: LIAM ENGLISH Room: [address] IN ..#: [id number] Admission: 03/10/20 Attend Phys: Harpreet Arias, Discharge: Date of : 38 Date of Service: 03/10/20 1340 Report #: [id number] Mitral Valve E/A Ratio: 1.32 MV Decel. Time: 360.52 ms MV E Max Timur.: 0.84 m/s MV PHT: 104.55 ms MVA (PHT): 2.10 cm2 TDI E/Lateral E': 7.64 E/Medial E': 8.40 Medial E' Timur.: 0.10 m/s Lateral E' Timur.: 0.11 m/s Pulmonary Valve PV Peak Timur.: 1.15 m/s PV Peak Gr.: 5.31 mmHg Tricuspid Valve RAP Estimate: 5.00 mmHg TR Peak Gr.: 33.99 mmHg RVSP: 38.00 mmHg PA Pressure: 38.00 mmHg Left Ventricle The left ventricle is normal size. There is normal LV segmental wall motion. There is normal left ventricular wall thickness. Left ventricular systolic function is normal. LVEF is 60-65%. Transmitral Doppler flow pattern suggests pseudonormalization. Right Ventricle The right ventricle is normal size. The right ventricular systolic function is normal. Atria Left atrium is mildly dilated. Right atrium is mildly dilated. Aortic Valve Mild aortic valve sclerosis. Trace aortic regurgitation. There is no aortic valvular stenosis. Mitral Valve There is mitral annular calcification. Mild mitral regurgitation. No evidence of mitral valve stenosis. Tricuspid Valve The tricuspid valve is normal in structure. Trace tricuspid regurgitation. Mild pulmonary hypertension. The RVSP is 40-[place] [address] 2 D/M-MODE ECHOCARDIOGRAM Name: LIAM ENGLISH Room: [address] IN [facility]#: [id number] Admission: 03/10/20 Attend Phys: Harpreet Arias, Discharge: Date of : 38 Date of Service: 03/10/20 1340 Report #: [id number] Pulmonic Valve The pulmonary valve is normal in structure. Trace pulmonic regurgitation. Great Vessels The aortic root is normal in size. IVC is normal in size and collapses >50% with inspiration. Pericardium There is no pericardial effusion. <Conclusion> The left ventricle is normal size. There is normal left ventricular wall thickness. Left ventricular systolic function is normal. LVEF is 60-65%. Transmitral Doppler flow pattern suggests pseudonormalization. Left atrium is mildly dilated. Right atrium is mildly dilated. Mild aortic valve sclerosis. Trace aortic regurgitation. There is mitral annular calcification. Mild mitral regurgitation. Trace tricuspid regurgitation. Mild pulmonary hypertension. The RVSP is 40-45 mmHg. IVC is normal in size and collapses >50% with inspiration. <ELECTRONICALLY SIGNED> By: Tom Viera MD, FACC 03/10/20 1340 1340 1340 Tom Viera MD, FACC /INF
[2020-03-10 15:23] VITALS: BP 165/65
[2020-03-10 16:30] VITALS: BP 182/76
[2020-03-10 18:55] VITALS: BP 130/68
[2020-03-10 20:20] VITALS: BP 111/63
[2020-03-11 00:09] VITALS: BP 141/57
[2020-03-11 04:48] VITALS: BP 158/64
[2020-03-11 08:00] VITALS: BP 170/56
[2020-03-11 08:46] LABS: CREATININE 1.2 mg/dL (0.6-1.3); MAGNESIUM 1.9 mg/dL (1.8-2.4); POTASSIUM 3.2 mmol/L (3.5-5.1)
[2020-03-11 11:44] VITALS: BP 135/57
[2020-03-11 16:00] VITALS: BP 129/60
[2020-03-11 19:40] VITALS: BP 131/66
[2020-03-12 00:10] VITALS: BP 145/65
[2020-03-12 04:10] VITALS: BP 168/71
[2020-03-12 08:00] VITALS: BP 106/56
[2020-03-12 11:00] VITALS: BP 118/47
[2020-03-12 14:38] VITALS: BP 118/47
[2020-03-12 14:48] VITALS: BP 118/47
[2020-03-12] MEDS ORDERED: CEFDINIR300 MG PO (15:41)
== END 2020-03-12 16:55 | disposition home or self-care (01) | DRG 308 ==
LOC: M.ERS 07:05 → M.2W 08:13 → M.TBA-ER 08:13 → M.2W 15:45
PROVIDERS: Emergency Medicine Emergency Medical Services; ADMIT Internal Medicine; ATTEND Internal Medicine
DX: R00.1 Bradycardia, unspecified (principal); N17.0 Acute kidney failure with tubular necrosis; E87.1 Hypo-osmolality and hyponatremia; I95.9 Hypotension, unspecified; E86.0 Dehydration; E55.9 Vitamin D deficiency, unspecified; E87.6 Hypokalemia; I27.20 Pulmonary hypertension, unspecified; N30.91 Cystitis, unspecified with hematuria; K21.9 Gastro-esophageal reflux disease without esophagitis; M47.9 Spondylosis, unspecified; M54.5 Low back pain; B96.20 Unspecified Escherichia coli [E. coli] as the cause of diseases classified elsewhere; G89.29 Other chronic pain; G43.909 Migraine, unspecified, not intractable, without status migrainosus; I10 Essential (primary) hypertension; Z96.653 Presence of artificial knee joint, bilateral; Z20.828 Contact with and (suspected) exposure to other viral communicable diseases; Z96.1 Presence of intraocular lens; Z90.49 Acquired absence of other specified parts of digestive tract; Z90.710 Acquired absence of both cervix and uterus; Z98.42 Cataract extraction status, left eye; Z98.41 Cataract extraction status, right eye; Z85.3 Personal history of malignant neoplasm of breast